=== PATIENT | female | born 1990 | race Caucasian/White ===

== ENCOUNTER 2017-09-08 08:22 | Emergency (ER) | payer MEDICAID ==
[2017-09-08 08:27] VITALS: TEMP 99.1
[2017-09-08] MEDS ORDERED: NS 1,000 ML IV ONE ×2 (08:39→09:37)
[2017-09-08] MEDS ORDERED: ONDANSETRON 4 MG/2 ML VIAL IVP ONE (08:39)
--- NOTE | 2017-09-08 08:44 | EDPHY ---
H & P Stated Complaint: N/V hard time controlling BGL, DM1 Time Seen by Provider: 09/08/17 08:32 HPI/ROS: Chief Complaint: Nausea, vomiting, hyperglycemia HPI: 27-year-old type 1 diabetic started having nausea vomiting about 8 o' clock last night. She has vomited multiple times. She has been having a hard time controlling her blood sugars is been in the 300 the last 2 times she checked despite giving herself 5 U of extra insulin. She is on Levemir 10 U twice a day and NovoLog. Has had some mild upper abdominal crampy pain associated with her vomiting. No diarrhea or constipation. Some subjective chills. No chest pain. No cough. No shortness of breath. Patient believes her last hemoglobin A1c was between 6 and 7 about 6 months ago. ROS: 10 point Review of Systems is negative except as noted in the HPI. PMH: Type 1 diabetes, hypothyroidism Social History: No smoking, no alcohol, no recreational drug use Family History: non-contributory Physical Exam: Gen: Awake, Alert, No Distress HEENT: Nose: no rhinorrhea Eyes: PERRLA, EOMI Mouth: Moist mucosa Neck: Supple, no JVD Chest: nontender, lungs clear to auscultation Heart: S1, S2 normal, no murmur Abd: Soft, non-tender, no guarding Back: no CVA tenderness, no midline tenderness Ext: no edema, non-tender Skin: no rash Neuro: CN II-XII intact, Sensation grossly intact, Strength 5/5 in bilateral upper and lower extremities - Personal History LMP (Females 10-55): 15-21 Days Ago Current Tetanus/Diphtheria Vaccine: Unsure Current Tetanus Diphtheria and Acellular Pertussis (TDAP): Unsure - Medical/Surgical History Hx Asthma: No Hx Chronic Respiratory Disease: No Hx Diabetes: Yes Hx Cardiac Disease: No Hx Renal Disease: No Hx Cirrhosis: No Hx Alcoholism: No Hx HIV/AIDS: No Hx Splenectomy or Spleen Trauma: No Other PMH: DM, hypothyroid - Social History Smoking Status: Never smoked Constitutional: Initial Vital Signs Temperature (C) 37.3 C 09/08/17 08:25 Heart Rate 143 H 09/08/17 08:25 Respiratory Rate 20 09/08/17 08:25 Blood Pressure 103/73 09/08/17 08:25 O2 Sat (%) 98 09/08/17 08:25 O2 Delivery Mode Room Air Allergies/Adverse Reactions: amoxicillin Allergy (Verified 09/08/17 08:24) NOSE BLEEDS Home Medications: Medication Instructions Recorded Herbals/Supplements -Info Only 1 ea PO DAILY 09/19/14 Levemir 09/08/17 Synthroid 09/08/17 novoLOG 09/08/17 Medical Decision Making ED Course/Re-evaluation: 27-year-old type 1 diabetic with vomiting. No diarrhea. No cough or respiratory symptoms. She is afebrile here. There is some back to urea however she has no leuk esterase or nitrates. She also has epithelial cells so I think this is likely contamination. Abdomen is soft and benign. She is not in DKA. Blood sugar is 200 here. She has received 2 L of saline. She is tolerating p.o.. Will discharge with follow-up with primary care physician. I have advised her to increase her insulin by 20% while she is sick. She will keep a close eye on her blood sugars, return for any concerns. - Data Points Laboratory Results: Laboratory Results 09/08/17 08:30 09/08/17 08:30 09/08/17 09/08/17 09/08/17 09:30 08:30 08:30 WBC RBC Hgb POC Hgb 15.3 gm/dL gm/dL (12.6-16.3) Hct POC Hct 45 % % (38-47) MCV MCH MCHC RDW Plt Count MPV Neut % (Auto) Lymph % (Auto) [place] % (Auto) Eos % (Auto) Baso % (Auto) Nucleat RBC Rel Count Absolute Neuts (auto) Absolute Lymphs (auto) Absolute Monos (auto) Absolute Eos (auto) Absolute Basos (auto) Absolute Nucleated RBC Immature Gran % Immature Gran # POC Sodium 138 mEq/L mEq/L (135-145) Sodium POC Potassium 3.7 mEq/L mEq/L (3.3-5.0) Potassium POC Chloride 101 mEq/L mEq/L (97-110) Chloride Carbon Dioxide Anion Gap POC BUN 10 mg/dL mg/dL (7-23) BUN Creatinine POC Creatinine 0.5 mg/dL L mg/dL (0.6-1.0) Estimated GFR Glucose POC Glucose 214 mg/dL H mg/dL (70-100) Calcium Beta HCG, Qual NEGATIVE Urine Color YELLOW Urine Appearance CLEAR Urine pH 6.0 (5.0-7.5) Ur Specific [place] 1.006 (1.002-1.030) Urine Protein NEGATIVE (NEGATIVE) Urine Ketones TRACE H (NEGATIVE) Urine Blood NEGATIVE (NEGATIVE) Urine Nitrate NEGATIVE (NEGATIVE) Urine Bilirubin NEGATIVE (NEGATIVE) Urine Urobilinogen NEGATIVE EU EU (0.2-1.0) Ur Leukocyte Esterase NEGATIVE (NEGATIVE) Urine RBC NONE SEEN /hpf /hpf (0-3) Urine WBC NONE SEEN /hpf /hpf (0-3) Ur Epithelial Cells TRACE /lpf /lpf (NONE-1+) Urine Bacteria 3+ /hpf H /hpf (NONE SEEN) Urine Mucus TRACE /lpf /lpf (NONE-1+) Urine Glucose 2+ H (NEGATIVE) 09/08/17 09/08/17 08:30 08:30 WBC 13.98 10^3/uL H 10^3/uL (3.80-9.50) RBC 5.04 10^6/uL 10^6/uL (4.18-5.33) Hgb 14.4 g/dL g/dL (12.6-16.3) POC Hgb Hct 42.5 % % (38.0-47.0) POC Hct MCV 84.3 fL fL (81.5-99.8) MCH 28.6 pg pg (27.9-34.1) MCHC 33.9 g/dL g/dL (32.4-36.7) RDW 12.4 % % (11.5-15.2) Plt Count 293 10^3/uL 10^3/uL (150-400) MPV 9.9 fL fL (8.7-11.7) Neut % (Auto) 91.0 % H % (39.3-74.2) Lymph % (Auto) 4.0 % L % (15.0-45.0) [place] % (Auto) 3.8 % L % (4.5-13.0) Eos % (Auto) 0.1 % L % (0.6-7.6) Baso % (Auto) 0.4 % % (0.3-1.7) Nucleat RBC Rel Count 0.0 % % (0.0-0.2) Absolute Neuts (auto) 12.72 10^3/uL H 10^3/uL (1.70-6.50) Absolute Lymphs (auto) 0.56 10^3/uL L 10^3/uL (1.00-3.00) Absolute Monos (auto) 0.53 10^3/uL 10^3/uL (0.30-0.80) Absolute Eos (auto) 0.02 10^3/uL L 10^3/uL (0.03-0.40) Absolute Basos (auto) 0.05 10^3/uL 10^3/uL (0.02-0.10) Absolute Nucleated RBC 0.00 10^3/uL 10^3/uL (0-0.01) Immature Gran % 0.7 % % (0.0-1.1) Immature Gran # 0.10 10^3/uL 10^3/uL (0.00-0.10) POC Sodium Sodium 140 mEq/L mEq/L (135-145) POC Potassium Potassium 4.1 mEq/L mEq/L (3.5-5.2) POC Chloride Chloride 102 mEq/L mEq/L (97-110) Carbon Dioxide 19 mEq/l L mEq/l (22-31) Anion Gap 19 mEq/L H mEq/L (8-16) POC BUN BUN 10 mg/dL mg/dL (7-23) Creatinine 0.6 mg/dL mg/dL (0.6-1.0) POC Creatinine Estimated GFR > 60 Glucose 202 mg/dL H mg/dL (70-100) POC Glucose Calcium 10.1 mg/dL mg/dL (8.5-10.4) Beta HCG, Qual Urine Color Urine Appearance Urine pH Ur Specific [place] Urine Protein Urine Ketones Urine Blood Urine Nitrate Urine Bilirubin Urine Urobilinogen Ur Leukocyte Esterase Urine RBC Urine WBC Ur Epithelial Cells Urine Bacteria Urine Mucus Urine Glucose Medications Given: Discontinued Medications Sodium Chloride (Ns) 1,000 mls @ 0 mls/hr IV ONCE ONE; Wide Open PRN Reason: Protocol Stop: 09/08/17 08:40 Last Admin: 09/08/17 08:45 Dose: 1,000 mls Sodium Chloride (Ns) 1,000 mls @ 0 mls/hr IV ONCE ONE PRN Reason: Wide Open Stop: 09/08/17 09:38 Last Admin: 09/08/17 09:38 Dose: 1,000 mls Ondansetron HCl (Zofran) 4 mg IVP EDNOW ONE Stop: 09/08/17 08:40 Last Admin: 09/08/17 08:45 Dose: 4 mg Point of Care Test Results: 09/08/17 08:30 POC Sodium 138 POC Potassium 3.7 POC Chloride 101 POC BUN 10 POC Creatinine 0.5 L POC Glucose 214 H Departure - Departure Disposition: Home, Routine, Self-Care Clinical Impression: Vomiting, Hyperglycemia Condition: Good Instructions: Acute Nausea and Vomiting (ED), Diabetic Hyperglycemia (ED), Ondansetron (By mouth) Additional Instructions: Increase your NovoLog dosing by 20% while you are sick. Keep a very close eye on your blood sugars and adjust accordingly. Make sure to drink plenty of fluids. You may take Zofran every 8 hr as needed for your nausea and vomiting. Return to the emergency department for uncontrolled higher low blood sugars. Persistent nausea or vomiting, abdominal pain, fever, cough, or any other concerns. Referrals: Kiara Kelly MD [Primary Care Provider] - As per Instructions
[2017-09-08 08:46] LABS: PLATELET COUNT 293 10^3/uL (150-400)
[2017-09-08] MEDS ORDERED: ONDANSETRON 4MG PREPACK#2 BTL TAKEHOME ONE (09:58)
--- NOTE | 2017-09-08 10:33 | ASMTLACE ---
LACE Length of stay for Answers: Less than 1 day current admission Acuity / Level of Answers: No Care: Did the patient have an inpatient admission? Comorbidities - select Answers: Diabetes (uncontrolled or all that apply controlled) # of Emergency department Answers: 1-2 visits in the last 6 months Score: 2 Date Signed: 09/08/2017 10:32 AM Electronically Signed By:Fiordaliza Engle LCSW
[2017-09-08 10:53] VITALS: BP 96/62; PULSE 115; RESP 16; O2SAT 97
== END 2017-09-08 10:53 | disposition home or self-care (01) ==
DX: R11.10 Vomiting, unspecified (principal); E10.65 Type 1 diabetes mellitus with hyperglycemia; E86.9 Volume depletion, unspecified
CPT/HCPCS: 82947-QW; 96374; J2405

== ENCOUNTER → 2018-03-26 | Outpatient (CLI) | payer MEDICAID | LOC: FIMAGING 10:05 | PROVIDERS: ATTEND Obstetrics & Gynecology | DX: Z36.89 Encounter for other specified antenatal screening (principal); O99.281 Endocrine, nutritional and metabolic diseases complicating pregnancy, first trimester; E03.9 Hypothyroidism, unspecified; O34.219 Maternal care for unspecified type scar from previous cesarean delivery; Z3A.19 19 weeks gestation of pregnancy; O24.011 Pre-existing type 1 diabetes mellitus, in pregnancy, first trimester; Z79.4 Long term (current) use of insulin ==

== ENCOUNTER → 2018-04-19 | Outpatient (CLI) | payer MEDICAID | LOC: FIMAGING 10:03 | PROVIDERS: ATTEND Obstetrics & Gynecology | DX: O24.012 Pre-existing type 1 diabetes mellitus, in pregnancy, second trimester (principal); Z3A.23 23 weeks gestation of pregnancy; Z79.4 Long term (current) use of insulin ==

== ENCOUNTER → 2018-06-11 | Outpatient (CLI) | payer MEDICAID | LOC: FIMAGING 11:13 | PROVIDERS: ATTEND Obstetrics & Gynecology | DX: Z36.2 Encounter for other antenatal screening follow-up (principal); Z3A.30 30 weeks gestation of pregnancy; O24.013 Pre-existing type 1 diabetes mellitus, in pregnancy, third trimester; O99.283 Endocrine, nutritional and metabolic diseases complicating pregnancy, third trimester; E03.9 Hypothyroidism, unspecified; O36.63X0 Maternal care for excessive fetal growth, third trimester, not applicable or unspecified; O34.219 Maternal care for unspecified type scar from previous cesarean delivery; Z79.4 Long term (current) use of insulin ==